=== PATIENT | female | born 1990 | race Two or more races ===

== ENCOUNTER 2020-05-14 05:00 | Day surgery (SDC) | payer OTHER ==
[~2020-05-14 05:00] MED LIST: ZESTRIL10 M1 PO
[2020-05-14] MEDS ORDERED: ULTRACET PO (15:57)
[2020-05-14] MEDS ORDERED: KEFLEX750 MG PO (15:57)
== END 2020-05-14 20:50 | disposition home or self-care (01) ==
LOC: CIR.AMB 05:00
PROVIDERS: ATTEND Surgery
DX: K80.10 Calculus of gallbladder with chronic cholecystitis without obstruction (principal); Z20.822 Contact with and (suspected) exposure to COVID-19